=== PATIENT | female | born 1975 | race Caucasian/White ===

== ENCOUNTER 2019-12-29 18:00 | Outpatient (CLI) | payer BC | END 2019-12-29 18:01 | disposition home or self-care (01) | LOC: SLEEPLAB 18:00 | PROVIDERS: ATTEND Otolaryngology Plastic Surgery within the Head & Neck | DX: G47.9 Sleep disorder, unspecified (principal); G47.33 Obstructive sleep apnea (adult) (pediatric); R53.83 Other fatigue; K21.9 Gastro-esophageal reflux disease without esophagitis; R06.83 Snoring; R49.0 Dysphonia; J02.0 Streptococcal pharyngitis; R68.2 Dry mouth, unspecified; E66.9 Obesity, unspecified; Z68.42 Body mass index [BMI] 45.0-49.9, adult | CPT/HCPCS: 95806 ==